=== PATIENT | female | born 1975 ===

== ENCOUNTER 2017-06-26 17:14 | Emergency (ER) | payer OTHER ==
[2017-06-26 17:48] VITALS: BP 146/90; PULSE 90; RESP 18; TEMP 98.3; O2SAT 99
[2017-06-26] MEDS ORDERED: Sodium Chloride 0.9% 1,000 ML IV STA (18:06)
--- NOTE | 2017-06-26 18:09 | ED PDOC ---
HPI: Abdomen Time Seen by Provider: 06/26/17 17:51 Chief Complaint (Nursing): GI Problem History Per: Patient Onset/Duration Of Symptoms: Days (2 ) Current Symptoms Are (Timing): Still Present Severity: Moderate Pain Scale Rating Of: 3 Location Of Pain/Discomfort: Epigastric, LLQ Quality Of Discomfort: Unable To Describe Associated Symptoms: Nausea, Vomiting, Diarrhea Additional Complaint(s): LLQ and epigastric abd pain since last night assoc with nausea vomiting and diarrhea. No fever, Denies bloody stool Past Medical History Vital Signs: Last Vital Signs Temp 98.3 F 06/26/17 17:44 Pulse 90 06/26/17 17:44 Resp 18 06/26/17 17:44 BP 146/90 06/26/17 17:44 Pulse Ox 99 06/26/17 18:11 - Medical History PMH: Hyperlipidemia Denies: Chronic Kidney Disease - Surgical History Surgical History: Appendectomy - Family History Family History: States: Unknown Family Hx - Allergies Allergies/Adverse Reactions: Allergies Allergy/AdvReac Type Severity Reaction Status Date / Time No Known Allergies Allergy Verified 06/26/17 17:44 Review of Systems ROS Statement: Except As Marked, All Systems Reviewed And Found Negative Gastrointestinal: Positive for: Nausea, Vomiting, Abdominal Pain, Diarrhea Physical Exam - Reviewed Nursing Documentation Reviewed: Yes Vital Signs Reviewed: Yes - Physical Exam Appears: Positive for: Non-toxic, No Acute Distress Head Exam: Positive for: ATRAUMATIC, NORMAL INSPECTION, NORMOCEPHALIC Skin: Positive for: Normal Color, Warm, DRY Eye Exam: Positive for: EOMI, Normal appearance, PERRL ENT: Positive for: Normal ENT Inspection Neck: Positive for: Normal, Painless ROM Cardiovascular/Chest: Positive for: Regular Rate, Rhythm Respiratory: Positive for: CNT, Normal Breath Sounds Gastrointestinal/Abdominal: Positive for: Bowel Sounds, Soft, Tenderness (LLQ and epigastric) Back: Positive for: Normal Inspection Extremity: Positive for: Normal ROM Neurologic/Psych: Positive for: Alert, Oriented - Laboratory Results Result Diagrams: 06/26/17 18:25 06/26/17 18:25 - ECG O2 Sat by Pulse Oximetry: 99 Disposition - Clinical Impression Clinical Impression: Abdominal pain - Patient ED Disposition Is Patient to be Admitted: Transfer of Care - Disposition Disposition Time: 19:04 Condition: FAIR Forms: [employer] (Bahraini) Patient Signed Over To: Pepe Bush
[2017-06-26 18:35] LABS: BASO # 0.1 K/uL (0.0-0.2); BASO % 0.4 % (0.0-2.0); EOS # 0.1 K/uL (0.0-0.7); EOS % 0.5 % (0.0-4.0); HEMOGLOBIN 13.6 g/dL (12.0-16.0); LYMPH # 3.2 K/uL (1.0-4.3); LYMPH % 27.7 % (20.0-40.0); MEAN CELL VOLUME 82.1 fl (81.0-99.0); MEAN CORPUSCULAR HEMOGLOBIN 26.8 pg (27.0-31.0); MEAN CORPUSCULAR HGB CONC 32.6 g/dL (33.0-37.0); MEAN PLATELET VOLUME 7.7 fl (7.2-11.7); MONO # 0.7 K/uL (0.0-0.8); NEUT # 7.5 K/uL (1.8-7.0); NEUT % 65.4 % (50.0-75.0); RBC 5.07 Mil/uL (3.80-5.20); RED CELL DISTRIBUTION WIDTH 13.4 % (11.5-14.5); WHITE BLOOD COUNT 11.5 K/uL (4.8-10.8)
[2017-06-26 18:45] LABS: ALB/GLOB RATIO 1.4 (1.0-2.1); ALBUMIN 4.4 g/dL (3.5-5.0); ALT/SGPT 35 U/L (9-52); AST/SGOT 23 U/L (14-36); BLOOD UREA NITROGEN 9 mg/dl (7-17); CALCIUM 9.1 mg/dL (8.4-10.2); GFR AFRICAN-AMERICAN > 60; GFR NON-AFRICAN AMERICAN > 60
[2017-06-26] MEDS ORDERED: Iohexol 300 100 ML IJ ONE (19:32)
[2017-06-26] MEDS ORDERED: Sodium Chloride 0.9% 50 ML IV ONE (19:33)
--- NOTE | 2017-06-26 19:33 | ED PDOC ---
- Laboratory Results Result Diagrams: 06/26/17 18:25 06/26/17 18:25 - ECG O2 Sat by Pulse Oximetry: 99 Medical Decision Making Medical Decision Making: Time: 19:00 --Patient endorsed to me by Dr. Trimble pending CT and reevaluation Time: 20:11 CT Abdomen and Pelvis Findings: Lower thorax: Probable small hiatal hernia. ABDOMEN: Liver: Fatty infiltration. Gallbladder and bile ducts: No calcified stones. No ductal dilation. Pancreas: No ductal dilation. No mass. Spleen: No splenomegaly. Adrenals: No mass. Kidneys and ureters: No mass. No hydronephrosis. Stomach and bowel: Segmental areas of mild mural thickening vs underdistention of transverse, descending, sigmoid colon. No associated inflammatory stranding. No obstruction. Appendix: Appendectomy. PELVIS: Bladder: Unremarkable. Reproductive: Small ovarian follicles. ABDOMEN and PELVIS: Intraperitoneal space: Trace free fluid within pelvis. No free air. Bones/joints: No acute fracture. Soft tissues: Laparotomy scar. Pfannenstiel scar. Tiny umbilical hernia containing fat. Vasculature: Unremarkable. No aneurysm. Lymph nodes: No pathologically enlarged lymph nodes. IMPRESSION: 1. Mild colitis versus underdistention. Clinical correlation is needed. 2. Incidental/non-acute findings are described above. Time: 21:30 Clinical Impression: Gastroenteritis Upon provider evaluation patient reports improvement of symptoms, is medically stable, and requires no further treatment in the ED at this time. Patient will be discharged with Rx for Bentyl and Zofran. Counseling was provided and all questions were answered regarding diagnosis and need for follow up with PMD. There is agreement to discharge plan. Return if symptoms persist or worsen. Scribe Attestation: Documented by Brenden Reese, acting as a scribe for Pepe Bush MD Provider Scribe Attestation: All medical record entries made by the Scribe were at my direction and personally dictated by me. I have reviewed the chart and agree that the record accurately reflects my personal performance of the history, physical exam, medical decision making, and the department course for this patient. I have also personally directed, reviewed, and agree with the discharge instructions and disposition. Disposition Counseled Patient/Family Regarding: Studies Performed, Diagnosis, Need For Followup, Rx Given - Clinical Impression Clinical Impression: Gastroenteritis - POA Present On Arrival: None - Disposition Disposition: Routine/Home Disposition Time: 21:30 Condition: STABLE Prescriptions: Dicyclomine [Bentyl] 20 mg PO Q12 PRN #20 tab PRN Reason: abdominal pain and/or diarrhea Ondansetron ODT [Zofran ODT] 4 mg PO Q6 PRN #12 odt PRN Reason: Nausea/Vomiting Instructions: Gastroenteritis (ED) Forms: [facility] (Romansh)
--- NOTE | 2017-06-26 21:11 | CT ---
EXAM: CT Abdomen and Pelvis With Intravenous Contrast CLINICAL HISTORY: 42 years old, female; Pain; Abdominal pain; Localized; Left lower quadrant (llq); Prior surgery; Surgery date: 6+ months; Surgery type: Append. Removed. 3 c-sections; Additional info: Lower abd pain TECHNIQUE: Axial computed tomography images of the abdomen and pelvis with intravenous contrast. All CT scans at this facility use one or more dose reduction techniques, viz.: automated exposure control; ma/kV adjustment per patient size (including targeted exams where dose is matched to indication; i.e. head); or iterative reconstruction technique. Coronal and sagittal reformatted images were created and reviewed. CONTRAST: 95 mL of OMNIPAQUE 300 administered intravenously. COMPARISON: No relevant prior studies available. FINDINGS: Lower thorax: Probable small hiatal hernia. ABDOMEN: Liver: Fatty infiltration. Gallbladder and bile ducts: No calcified stones. No ductal dilation. Pancreas: No ductal dilation. No mass. Spleen: No splenomegaly. Adrenals: No mass. Kidneys and ureters: No mass. No hydronephrosis. Stomach and bowel: Segmental areas of mild mural thickening vs underdistention of transverse, descending, sigmoid colon. No associated inflammatory stranding. No obstruction. Appendix: Appendectomy. PELVIS: Bladder: Unremarkable. Reproductive: Small ovarian follicles. ABDOMEN and PELVIS: Intraperitoneal space: Trace free fluid within pelvis. No free air. Bones/joints: No acute fracture. Soft tissues: Laparotomy scar. Pfannenstiel scar. Tiny umbilical hernia containing fat. Vasculature: Unremarkable. No aneurysm. Lymph nodes: No pathologically enlarged lymph nodes. IMPRESSION: 1. Mild colitis versus underdistention. Clinical correlation is needed. 2. Incidental/non-acute findings are described above.
== END 2017-06-26 21:44 | disposition home or self-care (01) ==
LOC: H.ER 17:14
DX: K52.9 Noninfective gastroenteritis and colitis, unspecified (principal); E78.5 Hyperlipidemia, unspecified
CPT/HCPCS: 74177; 80053; 81025; 85025; 96361; 96374; 96375; 99282; J2405; J7040; Q9967

== ENCOUNTER 2018-08-29 11:15 | Emergency (ER) | payer OTHER ==
[2018-08-29 11:28] VITALS: O2SAT 98
[2018-08-29] MEDS ORDERED: Piperacillin/Tazobact 4.5 GM in Sodium Chloride 0.9% 100 ML IVPB STA (11:57)
[2018-08-29 12:38] LABS: BASO % 0.4 % (0.0-2.0); EOS # 0.1 K/uL (0.0-0.7); EOS % 0.8 % (0.0-4.0); LYMPH # 3.1 K/uL (1.0-4.3); LYMPH % 29.3 % (20.0-40.0); MEAN CELL VOLUME 83.3 fl (81.0-99.0); MEAN CORPUSCULAR HEMOGLOBIN 27.9 pg (27.0-31.0); MEAN CORPUSCULAR HGB CONC 33.5 g/dL (33.0-37.0); MEAN PLATELET VOLUME 7.8 fl (7.2-11.7); MONO # 0.7 K/uL (0.0-0.8); MONO % 7.1 % (0.0-10.0); NEUT # 6.6 K/uL (1.8-7.0); NEUT % 62.4 % (50.0-75.0); RBC 5.02 Mil/uL (3.80-5.20); RED CELL DISTRIBUTION WIDTH 14.1 % (11.5-14.5); WHITE BLOOD COUNT 10.6 K/uL (4.8-10.8)
[2018-08-29 12:41] LABS: BLOOD UREA NITROGEN 11 mg/dl (7-17); CALCIUM 9.2 mg/dL (8.4-10.2); GFR NON-AFRICAN AMERICAN > 60
--- NOTE | 2018-08-29 14:00 | ED PDOC ---
HPI: Skin/Bite Injury Time Seen by Provider: 08/29/18 11:29 Chief Complaint (Nursing): Bite Chief Complaint (Provider): Bite History Per: Patient History/Exam Limitations: no limitations Onset/Duration Of Symptoms: Days (x 2) Current Symptoms Are (Timing): Still Present Location Of Injury: Right: Hand Quality Of Symptoms: Painful, Swollen Additional Complaint(s): 43 year old right hand dominant female with no significant medical history presents to the ED for evaluation of pain, swelling and redness to her right mayur mb and hand. Yesterday, patient reports she was attempting to pet a stray cat when she was bitten. Vaccination status of the stray cat is unknown. Patient denies fever. PMD: none provided - Animal Bite Description Of The Attack: Tried To Pet Animal Description Of The Animal: Stray Animal Appears: Unknown Animal's Immunization Status: Unknown Past Medical History Reviewed: Historical Data, Nursing Documentation, Vital Signs Vital Signs: Last Vital Signs Temp 98.5 F 08/29/18 11:25 Pulse 85 08/29/18 11:25 Resp 18 08/29/18 11:25 BP 151/89 H 08/29/18 11:25 Pulse Ox 98 08/29/18 11:25 - Medical History PMH: Hyperlipidemia Denies: Chronic Kidney Disease - Surgical History Surgical History: Appendectomy - Family History Family History: States: Unknown Family Hx - Home Medications Home Medications: Ambulatory Orders Medication Instructions Recorded Dicyclomine [Bentyl] 20 mg PO Q12 PRN #20 tab 06/26/17 Ondansetron ODT [Zofran ODT] 4 mg PO Q6 PRN #12 odt 06/26/17 Amoxicillin/Clavulanate [Augmentin 1 tab PO BID #20 tab 08/29/18 875 MG-125 MG] Ibuprofen [Motrin Tab] 600 mg PO Q6 PRN #15 tab 08/29/18 - Allergies Allergies/Adverse Reactions: Allergies Allergy/AdvReac Type Severity Reaction Status Date / Time No Known Allergies Allergy Verified 06/26/17 17:44 Review of Systems ROS Statement: Except As Marked, All Systems Reviewed And Found Negative Constitutional: Negative for: Fever Musculoskeletal: Positive for: Hand Pain (right hand and thumb pain, redness and swelling) Physical Exam - Reviewed Nursing Documentation Reviewed: Yes Vital Signs Reviewed: Yes - Physical Exam Appears: Positive for: No Acute Distress Head Exam: Positive for: ATRAUMATIC, NORMAL INSPECTION, NORMOCEPHALIC Skin: Positive for: Normal Color, Warm, Dry Eye Exam: Positive for: Normal appearance, EOMI, PERRL Cardiovascular/Chest: Positive for: Regular Rate, Rhythm. Negative for: Murmur Respiratory: Positive for: Normal Breath Sounds. Negative for: Respiratory Distress Extremity: Positive for: Normal ROM (full ROM of right hand and fingers), Te nderness (puncture wound to right thumb with edema and tenderness to the finger), Other (tracking erythema to thenar eminence; scattered scratches to hand and wrist) Neurological/Psych: Positive for: Awake, Alert, Normal Tone, Oriented (x 3). Negative for: Motor/Sensory Deficits - Laboratory Results Result Diagrams: 08/29/18 12:20 08/29/18 12:20 - ECG O2 Sat by Pulse Oximetry: 98 (RA) Pulse Ox Interpretation: Normal Medical Decision Making Medical Decision Makin:58 MDM: Dose of antibiotics and Rabies prophylaxis given Check labs X-ray of right hand to rule out retained cat tooth. 13:45 Blood work reviewed and unremarkable hand xray no foreign body noted zosyn given, hand soaked Rx augmentin and return for rabies vaccine series indications for earlier return (redness/swelling extending, fever, pain, etc) to ER discussed in [place] and daughter speaks norwegian Scribe Attestation: Documented by Merary Mirza, acting as a scribe for Roland Mcdonough III, DO Provider Scribe Attestation: All medical record entries made by the Scribe were at my direction and personally dictated by me. I have reviewed the chart and agree that the record accurately reflects my personal performance of the history, physical exam, medical decision making, and the department course for this patient. I have also personally directed, reviewed, and agree with the discharge instructions and disposition Disposition - Clinical Impression Clinical Impression: Cat bite, Cellulitis of hand - Patient ED Disposition Is Patient to be Admitted: No - Disposition Referrals: [facility] [Outside] Pravin Spence MD [Medical Doctor] - Disposition: Routine/Home Disposition Time: 14:30 Condition: STABLE Additional Instructions: Soak hand 3x daily in warm soapy water. Take antibiotics as prescribed 2x daily/ Return to ER for any worse symptoms, fever, swelling or redness to thumb or hand, or any concern. Use motrin for pain. Return in 3, 7, and 13 days for additional rabies vaccine. Remoje la mano 3x diariamente en agua tibia jabonosa. [place] antibiticos segn lo prescrito 2 veces al da / Regrese a la solange de emergencias por cualquier sntoma peor, fiebre, hinchazn o enrojecimiento en el pulgar o la mano, o cualquier inquietud. Use motrin para el dolor. Regrese en 3, 7 y 13 berry para recibir la vacuna adicional contra la [place] Prescriptions: Amoxicillin/Clavulanate [Augmentin 875 MG-125 MG] 1 tab PO BID #20 tab Ibuprofen [Motrin Tab] 600 mg PO Q6 PRN #15 tab PRN Reason: Pain, Moderate (4-7) Instructions: Cellulitis and Erysipelas (Skin Infections), Animal Bites (DC) Forms: [employer] (Pashto) Print Language: FRISIAN
[2018-08-29] MEDS ORDERED: Tdap Vaccine 0.5 ml Vial (10-64 yrs) IM ONE ×2 (14:41→14:45)
[2018-08-29 15:07] VITALS: BP 140/80; PULSE 82; RESP 21; TEMP 97.6
--- NOTE | 2018-08-29 16:33 | RAD ---
PROCEDURE: Right Hand Radiographs. HISTORY: Cat bite injury COMPARISON: None. TECHNIQUE: 3 views obtained. FINDINGS: BONES: Normal. No fracture. JOINTS: Normal. No osteoarthritic changes. SOFT TISSUES: No subcutaneous emphysema or radiopaque foreign bodies are identified. OTHER FINDINGS: None. IMPRESSION: No evidence of acute displaced fracture nor dislocation. No definitive cortical destructive changes. No evidence of subcutaneous emphysema
== END 2018-08-29 15:07 | disposition home or self-care (01) ==
LOC: H.ER 11:15
DX: S61.051A Open bite of right thumb without damage to nail, initial encounter (principal); W55.01XA Bitten by cat, initial encounter; Y92.89 Other specified places as the place of occurrence of the external cause; L03.011 Cellulitis of right finger; E78.5 Hyperlipidemia, unspecified
CPT/HCPCS: 73130; 80048; 85025; 87040; 90375; 90471; 90675; 90715; 96372; 99282; J2543

== ENCOUNTER 2018-09-01 17:07 | Emergency (ER) | payer SELFPAY ==
[2018-09-01 17:37] VITALS: BP 112/71; PULSE 82; RESP 18; TEMP 98.4; O2SAT 98
--- NOTE | 2018-09-01 17:58 | ED PDOC ---
HPI: General Adult Time Seen by Provider: 09/01/18 17:31 Chief Complaint (Nursing): Rabies Vaccine Series Chief Complaint (Provider): Rabies Vaccine Series History Per: Patient History/Exam Limitations: no limitations Onset/Duration Of Symptoms: Days (x3) Current Symptoms Are (Timing): Better Additional Complaint(s): 43 year old female presents to the ED for her second Rabies vaccine. Patient was seen here on 08/29 s/p being bitten by a stray cat on her right thumb. She notes there is still some redness and swelling, but it is much better than at onset. Compliant with antibiotics. And ibuprofen for pain which helps. Pain is 4/10 which she reports is much better than before. Otherwise, denies fever, chills, and any complications. PMD: none provided Past Medical History Reviewed: Historical Data, Nursing Documentation, Vital Signs Vital Signs: Last Vital Signs Temp 98.4 F 09/01/18 17:34 Pulse 82 09/01/18 17:34 Resp 18 09/01/18 17:34 BP 112/71 09/01/18 17:34 Pulse Ox 98 09/01/18 17:34 - Medical History PMH: Hyperlipidemia Denies: Chronic Kidney Disease - Surgical History Surgical History: Appendectomy - Family History Family History: States: Unknown Family Hx - Social History Current smoker - smoking cessation education provided: No Alcohol: None Drugs: Denies - Home Medications Home Medications: Ambulatory Orders Medication Instructions Recorded Dicyclomine [Bentyl] 20 mg PO Q12 PRN #20 tab 06/26/17 Ondansetron ODT [Zofran ODT] 4 mg PO Q6 PRN #12 odt 06/26/17 Amoxicillin/Clavulanate [Augmentin 1 tab PO BID #20 tab 08/29/18 875 MG-125 MG] Ibuprofen [Motrin Tab] 600 mg PO Q6 PRN #15 tab 08/29/18 - Allergies Allergies/Adverse Reactions: Allergies Allergy/AdvReac Type Severity Reaction Status Date / Time No Known Allergies Allergy Verified 09/01/18 17:34 Review of Systems ROS Statement: Except As Marked, All Systems Reviewed And Found Negative Constitutional: Negative for: Fever, Chills Musculoskeletal: Positive for: Other (cat bite to right thumb with moderate redness and swelling) Physical Exam - Reviewed Nursing Documentation Reviewed: Yes Vital Signs Reviewed: Yes - Physical Exam Comments: GENERAL APPEARANCE: Patient is awake, alert, oriented x 3, in mild painful distress. Skin: warm and dry Pulmonary: lungs clear, no rhonchi, no wheezing. Cardiac: regular rate and rhythm, no murmur, no gallop. Right Upper Extremity: healed puncture wounds to palmar aspect of thumb, very mild erythema and swelling to top of thumb with mild tenderness,(pt with picture of previous and significant improvement today) (-) purulent discharge. full ROM entire RUE and all digits. Abdomen: soft, nontender. Extremities: no deformity, full range of motion, no tenderness. - ECG O2 Sat by Pulse Oximetry: 98 (RA) Pulse Ox Interpretation: Normal Medical Decision Making Medical Decision Making: Time: 1742 Initial Impression: Rabies series Initial Plan: --Rabies vaccine 2.5 units --Return parameters discussed and patient verbalized understanding and agreement to follow up for third vaccine on 09/05 and continue compliance with antibiotics. Scribe Attestation: Documented by Cheryle Kim acting as a scribe for Wil Dave PA-C. Provider Scribe Attestation: All medical record entries made by the Scribe were at my direction and personally dictated by me. I have reviewed the chart and agree that the record accurately reflects my personal performance of the history, physical exam, medical decision making, and the department course for this patient. I have also personally directed, reviewed, and agree with the discharge instructions and disposition. Disposition - Clinical Impression Clinical Impression: Encounter for repeat administration of rabies vaccination - Patient ED Disposition Is Patient to be Admitted: No Counseled Patient/Family Regarding: Studies Performed, Diagnosis, Need For Followup - Disposition Referrals: [facility] [Outside] Disposition: Routine/Home Disposition Time: 18:30 Condition: STABLE Additional Instructions: Return to ER on FridaySeptember 05 for next vaccine. Continue taking antibiotics until finished and Ibuprofen as needed for pain. Return to ED sooner for any new or worsening symptoms. Thank you for letting us take care of you today. You were treated for rabies vaccine. The emergency medical care you received today was directed at your acute symptoms. If you were prescribed any medication, please fill it and take as directed. It may take several days for your symptoms to resolve. Return to the Emergency Department if your symptoms worsen, do not improve, or if you have any other problems. Please contact your doctor in 2 days for re-evaluation and follow up / or call one of the physicians/clinics you have been referred to that are listed on the Patient Visit Information form that is included in your discharge packet. Bring any paperwork you were given at discharge with you along with any medications you are taking to your follow up visit. Our treatment cannot replace ongoing medical care by a primary care provider (PCP) outside of the emergency department. Instructions: Vaccines Forms: [facility] (Latvian) Print Language: IRANIAN - POA Present On Arrival: None
== END 2018-09-01 18:46 | disposition home or self-care (01) ==
LOC: H.ER 17:07
DX: S61.051D Open bite of right thumb without damage to nail, subsequent encounter (principal); W55.01XD Bitten by cat, subsequent encounter; Z23 Encounter for immunization

== ENCOUNTER 2018-09-05 18:39 | Emergency (ER) | payer SELFPAY ==
[2018-09-05 18:49] VITALS: BP 120/86; PULSE 80; RESP 16; TEMP 98.3; O2SAT 97
--- NOTE | 2018-09-05 19:00 | ED PDOC ---
HPI: General Adult Time Seen by Provider: 09/05/18 18:45 Chief Complaint (Nursing): Rabies Vaccine Series Chief Complaint (Provider): Rabies Vaccine Series History Per: Patient History/Exam Limitations: no limitations Current Symptoms Are (Timing): Better Additional Complaint(s): 43 year old female presents to the ED for her third shot of rabies vaccines. Patient was bite by a cat on her right thumb on 08/29/18. Otherwise, patient does not have any other complaints. Past Medical History Reviewed: Historical Data, Nursing Documentation, Vital Signs Vital Signs: Last Vital Signs Temp 98.3 F 09/05/18 18:47 Pulse 80 09/05/18 18:47 Resp 16 09/05/18 18:47 BP 120/86 09/05/18 18:47 Pulse Ox 97 09/05/18 18:47 - Medical History PMH: Hyperlipidemia Denies: Chronic Kidney Disease - Surgical History Surgical History: Appendectomy - Family History Family History: States: Unknown Family Hx - Home Medications Home Medications: Ambulatory Orders Medication Instructions Recorded Dicyclomine [Bentyl] 20 mg PO Q12 PRN #20 tab 06/26/17 Ondansetron ODT [Zofran ODT] 4 mg PO Q6 PRN #12 odt 06/26/17 Amoxicillin/Clavulanate [Augmentin 1 tab PO BID #20 tab 08/29/18 875 MG-125 MG] Ibuprofen [Motrin Tab] 600 mg PO Q6 PRN #15 tab 08/29/18 - Allergies Allergies/Adverse Reactions: Allergies Allergy/AdvReac Type Severity Reaction Status Date / Time No Known Allergies Allergy Verified 09/05/18 18:46 Review of Systems ROS Statement: Except As Marked, All Systems Reviewed And Found Negative Constitutional: Negative for: Fever, Chills Skin: Negative for: Rash Neurological: Negative for: Weakness, Numbness Physical Exam - Reviewed Nursing Documentation Reviewed: Yes Vital Signs Reviewed: Yes - Physical Exam Appears: Positive for: Well, Non-toxic, No Acute Distress Skin: Positive for: Normal Color, Warm, Dry. Negative for: Rash Extremity: Positive for: Normal ROM, Other (on right thumb there's no erythema) Neurological/Psych: Positive for: Awake, Alert, Normal Tone, Oriented (x3) - ECG O2 Sat by Pulse Oximetry: 97 (RA) Pulse Ox Interpretation: Normal Medical Decision Making Medical Decision Making: Time: 1849 Plan: Rabies vaccine Bite jeff improved on right thumb and third shot given Scribe Attestation: Documented by Tio Shi, acting as a scribe for Tiffany Epstein PA-C. Provider Scribe Attestation: All medical record entries made by the Scribe were at my direction and personally dictated by me. I have reviewed the chart and agree that the record accurately reflects my personal performance of the history, physical exam, medical decision making, and the department course for this patient. I have also personally directed, reviewed, and agree with the discharge instructions and disposition. Disposition - Clinical Impression Clinical Impression: Encounter for repeat administration of rabies vaccination - Patient ED Disposition Is Patient to be Admitted: No - Disposition Disposition: Routine/Home Disposition Time: 19:00 Condition: STABLE Instructions: Rabies Vaccine Print Language: ARMENIAN
== END 2018-09-05 19:19 | disposition home or self-care (01) ==
LOC: H.ER 18:39
DX: Z29.14 Encounter for prophylactic rabies immune globulin (principal); E78.5 Hyperlipidemia, unspecified

== ENCOUNTER 2018-09-12 19:12 | Emergency (ER) | payer SELFPAY ==
[2018-09-12 19:24] VITALS: BP 126/86; PULSE 85; RESP 16; TEMP 98.7; O2SAT 98; BMI 32.5
--- NOTE | 2018-09-12 19:54 | ED PDOC ---
HPI: General Adult Time Seen by Provider: 09/12/18 19:45 Chief Complaint (Nursing): Rabies Vaccine Series Chief Complaint (Provider): Rabies Vaccine Series History Per: Patient History/Exam Limitations: no limitations Current Symptoms Are (Timing): Still Present Additional Complaint(s): 43 year old female presents to the ED for day 14 rabbies vaccine follow up. Patient was bite by a cat on her right thumb on 08/29/18. No complaints at present. PMD: none provided Past Medical History Reviewed: Historical Data, Nursing Documentation, Vital Signs Vital Signs: Last Vital Signs Temp 98.7 F 09/12/18 19:22 Pulse 85 09/12/18 19:22 Resp 16 09/12/18 19:22 BP 126/86 09/12/18 19:22 Pulse Ox 98 09/12/18 19:22 - Medical History PMH: Hyperlipidemia Denies: Chronic Kidney Disease - Surgical History Surgical History: Appendectomy - Family History Family History: States: Unknown Family Hx - Home Medications Home Medications: Ambulatory Orders Medication Instructions Recorded Dicyclomine [Bentyl] 20 mg PO Q12 PRN #20 tab 06/26/17 Ondansetron ODT [Zofran ODT] 4 mg PO Q6 PRN #12 odt 06/26/17 Amoxicillin/Clavulanate [Augmentin 1 tab PO BID #20 tab 08/29/18 875 MG-125 MG] Ibuprofen [Motrin Tab] 600 mg PO Q6 PRN #15 tab 08/29/18 - Allergies Allergies/Adverse Reactions: Allergies Allergy/AdvReac Type Severity Reaction Status Date / Time No Known Allergies Allergy Verified 09/05/18 18:46 Review of Systems ROS Statement: Except As Marked, All Systems Reviewed And Found Negative Skin: Positive for: Other (healing bite on right thumb) Physical Exam - Reviewed Nursing Documentation Reviewed: Yes Vital Signs Reviewed: Yes - Physical Exam Appears: Positive for: No Acute Distress Skin: Positive for: Normal Color, Warm, Dry. Negative for: Rash Eye Exam: Positive for: Normal appearance, EOMI, PERRL Extremity: Positive for: Normal ROM (upper and lower), Other (Right thumb: well healing, no erythema) Neurological/Psych: Positive for: Awake, Alert, Oriented - ECG O2 Sat by Pulse Oximetry: 98 (RA) Pulse Ox Interpretation: Normal - Progress ED Course And Treament: rabies vaccine 2.5 U/1ml IM x 1 dose Medical Decision Making Medical Decision Making: Time: 1947 Plan: --Rabbies vaccine Scribe Attestation: Documented by Shannan Hammonds acting as a scribe for Tiffany Epstein PA-C. Provider Scribe Attestation: All medical record entries made by the Scribe were at my direction and personally dictated by me. I have reviewed the chart and agree that the record accurately reflects my personal performance of the history, physical exam, medical decision making, and the department course for this patient. I have also personally directed, reviewed, and agree with the discharge instructions and disposition. Disposition - Clinical Impression Clinical Impression: Encounter for repeat administration of rabies vaccination - Patient ED Disposition Is Patient to be Admitted: No - Disposition Disposition: Routine/Home Disposition Time: 19:55 Condition: FAIR Instructions: Rabies Vaccine Print Language: CZECH
== END 2018-09-12 20:26 | disposition home or self-care (01) ==
LOC: H.ER 19:12
DX: Z20.3 Contact with and (suspected) exposure to rabies (principal); Z23 Encounter for immunization